=== PATIENT | female | born 1955 | race Caucasian/White ===

== ENCOUNTER 2022-02-18 06:00 | Outpatient (RCR) | payer OTHER, MEDICARE, SELFPAY | END 2022-02-19 23:59 | disposition home or self-care (01) | LOC: MOT 06:00 | PROVIDERS: Referring Provider Family Medicine; Visit Provider Family Medicine | DX: M77.01 Medial epicondylitis, right elbow (principal); M25.521 Pain in right elbow | CPT/HCPCS: 97035; 97110; 97166 ==

== ENCOUNTER 2022-02-20 06:00 | Outpatient (RCR) | payer MEDICARE, OTHER, SELFPAY | END 2022-03-21 23:59 | disposition home or self-care (01) | LOC: MOT 06:00 | PROVIDERS: Referring Provider Family Medicine; Visit Provider Family Medicine | DX: M77.02 Medial epicondylitis, left elbow (principal) | CPT/HCPCS: 97035; 97110; 97140; 97760 ==

== ENCOUNTER 2022-03-22 06:00 | Outpatient (RCR) | payer MEDICARE, OTHER, SELFPAY | END 2022-04-21 23:59 | disposition home or self-care (01) | LOC: MOT 06:00 | PROVIDERS: Referring Provider Family Medicine; Visit Provider Family Medicine | DX: M77.02 Medial epicondylitis, left elbow (principal) | CPT/HCPCS: 97035; 97110; 97140 ==

== ENCOUNTER 2022-03-31 15:47 | Emergency (ER) | payer MEDICARE, OTHER, SELFPAY ==
[2022-03-31 15:57] VITALS: BP 158/88; PULSE 85; RESP 16; TEMP 36.6; O2SAT 95; BMI 29.0
--- NOTE | 2022-03-31 16:58 | ECG_ITS ---
[facility] Test Date: 2022-03-31 Pat Name: Leonela Parker Department: Room: Gender: Female Foreign [employer]: : [id number] Requested By: Krishna Hess Order Number: [id number] Danielle MD: Adonay Mason M.D. Measurements Intervals [place] Rate: 66 P: 76 MD: 163 QRS: 50 QRSD: 86 T: 75 QT: 371 QTc: 391 Interpretive Statements SINUS RHYTHM No previous ECG available for comparison Electronically Signed On 03-31-2022 22:57:54 CDT by Adonay Mason M.D. [id number]
[2022-03-31] MEDS: sodium chloride 0.9% 1,000 ML 999 ML IV (18:05)
[2022-03-31 18:11] LABS: Add Urine Microscopic? NO; Charge for UA Resulting for Rev
[2022-03-31 18:15] LABS: Bilirubin Urine Neg (Negative); Blood Urine Neg (Negative); Glucose Urine UA Norm (Normal); Ketones Urine Negative (Negative); Leukocyte Esterase Urine Negative (Negative); Nitrate Urine Negative (Negative); Protein Urine Neg (Negative); Urine Appearance Clear (CLEAR); Urine Color Yellow (Yellow); Urobilinogen Urine Norm (Negative); pH Urine 6 (5-7)
[2022-03-31 18:21] LABS: Basophils % 0.3 %; Eosinophils # 0.2 10^3/uL (0.0-0.8); Eosinophils % 3.1 %; Hematocrit 40.2 % (37.0-47.0); Hemoglobin 13.4 g/dL (11.5-15.3); Lymphocytes # 2.1 10^3/uL (0.8-4.8); Lymphocytes % 34.4 %; Mean Corpuscular HGB Conc 33.3 g/dL (30.0-36.0); Mean Corpuscular Hemoglobin 31.1 pg (28.0-34.0); Mean Corpuscular Volume 93.3 fl (81-99); Mean Platelet Volume 9.5 fL (7.4-10.4); Monocytes # 0.7 10^3/uL (0.2-0.9); Monocytes % 11.7 %; Neutrophils # 3.04 10^3/uL (1.8-7.7); Neutrophils % 50.3 %; Nucleated Red Blood Cells % 0 %; Platelet Count 319 10^3/cmm (130-400); Red Blood Count 4.31 10^6/uL (4.1-5.3); Red Cell Distribution Width 11.9 % (12.1-15.1); White Blood Count 6.1 10^3/uL (4.0-10.0)
--- NOTE | 2022-03-31 18:32 | ED_ITS ---
HPI - Weakness General: Chief complaint: Weakness Stated complaint: confusion, dizzy Time Seen by Provider: 03/31/22 16:25 History of Present Illness: 66-year-old female in with some nonspecific complaints. She reports she feels like she is little dehydrated and dizzy. She says that this is happened to her before when her sodium is been low. She has not been taking her medication as directed because she has had a little bit of a GI bug. She has not had any fever today no vomiting today. Patient reports just feeling a little fuzzy in her head. No skin rash. No chest pain or shortness of breath. She has not had any coronavirus like symptoms. No other symptoms reported. Review of Systems General: Reports: 10 or more systems reviewed and unremarkable except in HPI and below Physical Exam Const: COMMON NORMALS: no acute distress, patient oriented x3, alert and well nourished HENMT: COMMON NORMALS: normocephalic HEAD & SCALP: normocephalic Eye: COMMON NORMALS: Equal, round and reactive pupils present, EOMs intact bilaterally and conjunctivae normal CONJUNCTIVA: Yes conjunctivae normal PUPIL: Yes Equal, round and reactive pupils present Neck/C-Spine: COMMON NORMALS: full ROM, no lymphadenopathy and supple Chest: COMMONS NORMALS: normal inspection of the chest and normal palpation of entire chest wall Resp: COMMON NORMALS: normal respiratory effort, No retractions and clear to auscultation bilaterally AUSCULTATION: clear to auscultation bilaterally GI: COMMON NORMALS: Normal to inspection, nondistended, normoactive bowel sounds present, Soft to palpation, non-tender and No hepatosplenomegaly present PALPATION: Yes Soft to palpation and Yes No hepatosplenomegaly present : COMMON NORMALS: Yes no CVA tenderness BLADDER/KIDNEY EXAM: Yes no CVA tenderness Back/Pelvis: COMMON NORMALS: no CVA tenderness Extremity: COMMON NORMALS: normal to inspection, full ROM and no pedal edema Neuro: COMMON NORMALS: patient oriented x3 SENSORIUM/ORIENTATION: Yes alert Skin: COMMON NORMALS: no rashes or lesions noted, no wounds and turgor normal GENERAL SKIN EXAM: no rashes or lesions noted and turgor normal Course ED course: 66-year-old female in with some nonspecific symptoms found to have hyponatremia. She was given some IV fluids felt significantly better there were no serious emergent conditions identified here I do not think she needs admission to the hospital she feels better wants to go home she will need some of her lab abnormalities rechecked in discussion with her primary care regarding her hydrochlorothiazide. Vital Signs: Vital signs: Vital Signs Temperature 97.8 F 03/31/22 15:57 Pulse Rate 85 03/31/22 15:57 Respiratory Rate 16 03/31/22 15:57 Blood Pressure 158/88 03/31/22 15:57 Pulse Oximetry 95 03/31/22 15:57 MDM - Weakness Medical Decision Making 66-year-old female in with some nonspecific symptoms. Her blood pressure is mildly elevated otherwise her vital signs seem stable. Differential includes electrolyte disorders and viral illness as well as volume depletion. Check some routine labs as well as EKG just to make sure there is no cardiac arrhythmia or other concerning finding and her EKG reveals a normal sinus rhythm with normal intervals and axis with a ventricular rate of 66. Serial reexaminations and continuous vital sign monitoring. Lab Data : 03/31/22 18:05 03/31/22 18:05 Laboratory Results WBC 6.1 10^3/uL (4.0-10.0) 03/31/22 18:05 RBC 4.31 10^6/uL (4.1-5.3) 03/31/22 18:05 Hgb 13.4 g/dL (11.5-15.3) 03/31/22 18:05 Hct 40.2 % (37.0-47.0) 03/31/22 18:05 MCV 93.3 fl (81-99) 03/31/22 18:05 MCH 31.1 pg (28.0-34.0) 03/31/22 18:05 MCHC 33.3 g/dL (30.0-36.0) 03/31/22 18:05 RDW 11.9 % (12.1-15.1) L 03/31/22 18:05 Plt Count 319 10^3/cmm (130-400) 03/31/22 18:05 MPV 9.5 fL (7.4-10.4) 03/31/22 18:05 Neut % (Auto) 50.3 % 03/31/22 18:05 Lymph % (Auto) 34.4 % 03/31/22 18:05 Finney % (Auto) 11.7 % 03/31/22 18:05 Eos % (Auto) 3.1 % 03/31/22 18:05 Baso % (Auto) 0.3 % 03/31/22 18:05 Neut # (Auto) 3.04 10^3/uL (1.8-7.7) 03/31/22 18:05 Lymph # (Auto) 2.1 10^3/uL (0.8-4.8) 03/31/22 18:05 Finney # (Auto) 0.7 10^3/uL (0.2-0.9) 03/31/22 18:05 Eos # (Auto) 0.2 10^3/uL (0.0-0.8) 03/31/22 18:05 Baso # (Auto) 0.0 10^3/uL (0.0-0.1) 03/31/22 18:05 Nucleated RBC % (auto) 0 % 03/31/22 18:05 Nucleated RBCs # 0.0 /100WBC 03/31/22 18:05 Sodium 130 mmol/L (136-145) L 03/31/22 18:05 Potassium 3.6 mmol/L (3.5-5.1) 03/31/22 18:05 Chloride 90 mmol/L (98-107) L 03/31/22 18:05 Carbon Dioxide 30 mmol/L (22-29) H 03/31/22 18:05 Anion Gap 13.6 (5-19) 03/31/22 18:05 BUN 11 mg/dL (8-23) 03/31/22 18:05 Creatinine 0.8 mg/dL (0.5-0.9) 03/31/22 18:05 GFR Calculation 71.3 mL/min (90-130) L 03/31/22 18:05 Glucose 94 mg/dL (65-115) 03/31/22 18:05 Calculated Osmolality 269 mOsm/kg (285-295) L 03/31/22 18:05 Calcium 9.7 mg/dL (8.5-10.5) 03/31/22 18:05 Total Bilirubin 0.2 mg/dL (0.15-1.2) 03/31/22 18:05 AST 49 U/L (0-32) H 03/31/22 18:05 ALT 54 U/L (0-33) H 03/31/22 18:05 Alkaline Phosphatase 96 IU/L (35-105) 03/31/22 18:05 Total Protein 7.7 g/dL (6.6-8.7) 03/31/22 18:05 Albumin 4.3 g/dL (3.5-5.2) 03/31/22 18:05 Globulin 3.4 g/dL (1.3-4.6) 03/31/22 18:05 Urine Color Yellow (Yellow) 03/31/22 18:05 Urine Appearance Clear (CLEAR) 03/31/22 18:05 Urine pH 6 (5-7) 03/31/22 18:05 Ur Specific Niland 1.010 (1.005-1.030) 03/31/22 18:05 Urine Protein Neg (Negative) 03/31/22 18:05 Urine Glucose (UA) Norm (Normal) 03/31/22 18:05 Urine Ketones Negative (Negative) 03/31/22 18:05 Urine Blood Neg (Negative) 03/31/22 18:05 Urine Nitrate Negative (Negative) 03/31/22 18:05 Urine Bilirubin Neg (Negative) 03/31/22 18:05 Urine Urobilinogen Norm mg/dL (Negative) 03/31/22 18:05 Ur Leukocyte Esterase Negative (Negative) 03/31/22 18:05 Discharge Plan Discharge Patient Disposition: Home Clinical Impression: Dehydration, Acute hyponatremia Condition: Stable Prescriptions: No Action losartan 50 mg tablet 50 mg PO DAILY 0RF Vitamin B-12 50 mcg Tablet 50 mcg PO DAILY 0RF amlodipine 10 mg tablet 10 mg PO DAILY 0RF lansoprazole 30 mg Capsule,Delayed Release(Dr/Ec) 30 mg PO DAILY 0RF Vitamin C 100 mg Tablet 100 mg PO DAILY 0RF hydrochlorothiazide 25 mg Tablet 25 mg PO DAILY 0RF lysine 500 mg Tablet 500 mg PO DAILY 0RF Vitamin D3 10 mcg (400 unit) Tablet 10 mcg PO DAILY 0RF bupropion HCl 150 mg Tablet Extended Release 24 Hr 150 mg PO QAM 0RF Viibryd 40 mg Tablet 40 mg PO DAILY 0RF Rx Instructions: must administer with a meal/food cyclosporine 0.05 % Drops 1 drp OPHTHALMIC (EYE) Q12H 0RF Discharge Orders: Discharge ED (Routine); Ordered 03/31/22 Ordered By: Krishna Hess Discharge Diet: Usual diet Discharge Activity: Resume usual activity Patient Instructions: Opioid Safety Activity Restrictions/Additional Instructions: 1. Follow up with PCP for recheck and discussion of labs. Needs LFTs and sodium rechecked. 2. Return for new or worsening symptoms. Coding Level of Care Code ED Chucking Machine Set Up Operator for Chg Fwd Exam Comprehensive
[2022-03-31 18:51] LABS: Slide Review Slide Review Perform
[2022-03-31 19:16] LABS: Alanine Aminotransferase 54 U/L (0-33); Albumin Level 4.3 g/dL (3.5-5.2); Alkaline Phosphatase 96 IU/L (35-105); Anion Gap 13.6 (5-19); Aspartate Amino Transferase 49 U/L (0-32); Blood Urea Nitrogen 11 mg/dL (8-23); Calcium 9.7 mg/dL (8.5-10.5); Carbon Dioxide 30 mmol/L (22-29); Chloride 90 mmol/L (98-107); Globulin 3.4 g/dL (1.3-4.6); Glomerular Filtration Rate 71.3 mL/min (90-130); Glucose 94 mg/dL (65-115); Osmolality Calculated 269 mOsm/kg (285-295); Potassium 3.6 mmol/L (3.5-5.1); Sodium 130 mmol/L (136-145); Total Bilirubin 0.2 mg/dL (0.15-1.2); Total Protein 7.7 g/dL (6.6-8.7)
[2022-03-31 20:00] VITALS: BP 155/94; PULSE 72; RESP 18; TEMP 36.9; O2SAT 96
== END 2022-03-31 20:01 | disposition home or self-care (01) ==
PROVIDERS: Emergency Provider Family Medicine
DX: E86.0 Dehydration (principal); E87.1 Hypo-osmolality and hyponatremia
CPT/HCPCS: 80053; 81003; 85025; 93005; 96360; 99284; J7030

== ENCOUNTER 2022-09-02 15:48 | Outpatient (RCR) | payer MEDICARE, OTHER, SELFPAY | END 2022-09-21 23:59 | disposition home or self-care (01) | LOC: MOT 15:48 | PROVIDERS: Visit Provider Family Medicine | DX: M77.01 Medial epicondylitis, right elbow (principal) | CPT/HCPCS: 97035; 97110; 97140; 97166 ==

== ENCOUNTER 2022-09-22 06:00 | Outpatient (RCR) | payer MEDICARE, OTHER, SELFPAY | END 2022-10-20 16:36 | disposition home or self-care (01) | LOC: MOT 06:00 | PROVIDERS: Visit Provider Family Medicine | DX: M77.01 Medial epicondylitis, right elbow (principal) | CPT/HCPCS: 97035; 97110; 97140 ==

== ENCOUNTER 2023-08-30 06:00 | Outpatient (RCR) | payer MEDICARE, OTHER, SELFPAY | END 2023-09-21 23:59 | disposition home or self-care (01) | LOC: MPT 06:00 | PROVIDERS: Visit Provider Family Medicine | DX: M25.561 Pain in right knee (principal); S89.91XD Unspecified injury of right lower leg, subsequent encounter; S76.301D Unspecified injury of muscle, fascia and tendon of the posterior muscle group at thigh level, right thigh, subsequent encounter; X58.XXXD Exposure to other specified factors, subsequent encounter | CPT/HCPCS: 97110; 97140; 97161 ==

== ENCOUNTER 2023-09-22 06:00 | Outpatient (RCR) | payer MEDICARE, OTHER, SELFPAY | END 2023-09-30 23:59 | disposition home or self-care (01) | LOC: MPT 06:00 | PROVIDERS: Visit Provider Family Medicine | DX: M25.561 Pain in right knee (principal) | CPT/HCPCS: 97110 ==